=== PATIENT | female | born 1980 | race African-American/Black ===

== ENCOUNTER → 2016-03-19 | Outpatient (CLI) | payer OTHER ==
--- NOTE | 2016-03-20 07:50 | MM ---
Reason for exam: clinical finding. Baseline mammogram. History: Took hormonal contraceptives for 4 years. Indicated problem(s): lump or thickening in the left breast. Physical Findings: Nurse Summary: 1 x 1.5cm nodule in the left breast at 9 o'clock (nurse ts). MG 3D Diag Mammo W/Cad MARY Bilateral CC and MLO view(s) were taken. There are scattered fibroglandular densities. Finding: There is a 13 mm irregular mass in the upper inner quadrant, subareolar position of the left breast, 1cm from the nipple. Focal asymmetry in the left subareolar at palpable abnormality. These results were verbally communicated with the patient and result sheet given to the patient on 03/19/16. ASSESSMENT: Incomplete: need additional imaging evaluation, BI-RAD 0 RECOMMENDATION: Ultrasound of the left breast.
--- NOTE | 2016-03-20 07:52 | USB ---
Reason for exam: additional evaluation requested from abnormal screening. History: Took hormonal contraceptives for 4 years. US Breast Limited LT Left breast ultrasound demonstrates a 1.8 x 0.9 x 1.9cm irregular, solid, vascular lesion at 9 o'clock. These results were verbally communicated with the patient and result sheet given to the patient on 03/19/16. ASSESSMENT: Suspicious, BI-RAD 4 RECOMMENDATION: Surgical consultation and ultrasound core biopsy of the left breast. Called Dr. Leija with mammographic findings and has scheduled an appointment for the patient for 03/26/16 at 10:[address] Dove. Left ultrasound core biopsy scheduled for 03/21/16 at 8:00. PRELIMINARY REPORT CALLED AND FAXED TO DR. DOVE ON 03/20/16 AT 300/TP.
== END | disposition home or self-care (01) ==
LOC: RADMAMWWP 14:01
PROVIDERS: ATTEND Family Medicine
DX: R92.2 Inconclusive mammogram (principal); R92.8 Other abnormal and inconclusive findings on diagnostic imaging of breast; N63 Unspecified lump in breast
CPT/HCPCS: 77051 ×2; 76642; G0204; G0279

== ENCOUNTER → 2016-03-21 | Day surgery (SDC) | payer OTHER ==
[~2016-03-21] MED LIST: BACITRACIN OINT 1 EACH PACKET TOPICAL ONE; LIDOCAINE 1% INJ 10MG/ML (20 ML MDV) ONE; SODIUM BICARB 4% 5 ML VIAL (0.48 MEQ/ML) ONE
--- NOTE | 2016-03-21 10:06 | USB ---
EXAMINATION TYPE: US biopsy breast VAD LT, MG diagnostic mammo LT wo CAD DATE OF EXAM: 03/21/2016 8:41 AM CLINICAL HISTORY: US. TECHNIQUE: Ultrasound guided core biopsy of left breast. COMPARISON: NONE FINDINGS: The procedure of ultrasound guided core biopsy was explained to the patient. Benefits, alternatives, and risks were discussed. An informed consent was then obtained. The patient was placed in supine positioning for imaging and for the procedure. The overlying skin was prepped and draped in usual sterile fashion. Lidocaine buffered with bicarbonate was used as anesthetic into the skin and subcutaneous tissue up to area of concern in the left breast. A jose maria was made with surgical scalpel. Under ultrasound guidance, a 12-gauge vacuum assisted biopsy gun device was used to obtain 5 core samples. Following this, a biopsy clip was left in lesion. The patient tolerated the procedure well without any immediate complication. The patient was kept in the radiology department for short stay after the procedure and then discharged home in stable condition. Postprocedural mammogram demonstrated appropriate deployment of a microclip. IMPRESSION: Successful, uncomplicated ultrasound guided core biopsy of area of concern in the left breast, full pathology results to follow. Pathology Results: Benign BREAST, LEFT, CORE BIOPSY: PENDING CONSULTATION, SEE ADDENDUM/FINAL DIAGNOSIS. ADDENDUM REPORT BREAST, LEFT, CORE BIOPSY: ([id number]; A1: 03/21/16): DENSE CHRONIC INFLAMMATORY INFILTRATE WITH LOBULOCENTRIC PATTERN, FAVOR LYMPHOCYTIC MASTOPATHY. PLEASE SEE NOTE. Recommendation Follow up mammogram of the left breast in 6 months. BUBBAD
== END ==
LOC: RADUSWWP 07:57
PROVIDERS: ATTEND Surgery Plastic and Reconstructive Surgery
DX: R92.8 Other abnormal and inconclusive findings on diagnostic imaging of breast (principal); Z88.1 Allergy status to other antibiotic agents
CPT/HCPCS: 88305; 88342; 88341; 19083; G0206; A4648; J2001

== ENCOUNTER → 2016-07-25 | Outpatient (CLI) | payer OTHER | END | disposition home or self-care (01) | LOC: MMGSC 13:34 | PROVIDERS: ATTEND Obstetrics & Gynecology | DX: O20.0 Threatened abortion (principal) | CPT/HCPCS: 36415; 84702 ==

== ENCOUNTER → 2016-08-05 | Outpatient (CLI) | payer OTHER ==
[2016-08-05 18:00] LABS: Anisocytosis Slight; Basophils % (A) 0 %; CH 26.2; CHCM 31.1; Eosinophils # (A) 0.1 k/uL (0-0.7); Eosinophils % (A) 1 %; HCT 36.9 % (34.0-46.0); HDW 2.24; HGB 11.4 gm/dL (11.4-16.0); Hypochromasia Slight; Luc # (Auto) 0.21; Luc % (Auto) 2; Lymphocytes # (A) 3.6 k/uL (1.0-4.8); Lymphocytes % (A) 32 %; MCH 26.2 pg (25.0-35.0); MCHC 30.9 g/dL (31.0-37.0); MCV 84.7 fL (80.0-100.0); Mean Platelet Volume 6.3; Monocytes # (A) 0.3 k/uL (0-1.0); Monocytes % (A) 3 %; Neutrophils % (A) 62 %; RBC 4.36 m/uL (3.80-5.40); RDW 16.1 % (11.5-15.5); WBC 11.3 k/uL (3.8-10.6); WBC (Perox) 11.76
== END | disposition home or self-care (01) ==
LOC: LABPAT 17:13
PROVIDERS: ATTEND Obstetrics & Gynecology
DX: Z01.812 Encounter for preprocedural laboratory examination (principal); Z01.818 Encounter for other preprocedural examination; O03.9 Complete or unspecified spontaneous abortion without complication
CPT/HCPCS: 85025

== ENCOUNTER 2016-08-06 06:49 | Day surgery (SDC) | payer OTHER ==
[2016-08-05 11:01] VITALS: BMI 44.9
[~2016-08-06 06:49] MED LIST changes: -BACITRACIN OINT 1 EACH PACKET TOPICAL ONE; +DEXAMETHASONE SOD PHOSPHATE 10 MG/ML 1 ML VIAL IV ONE; +HYDROmorphone 1 MG/ML 1 ML SYRINGE IVP PRN; +LACTATED RINGERS 1,000 ML IV SCH; -LIDOCAINE 1% INJ 10MG/ML (20 ML MDV) ONE; +MIDAZOLAM 2 MG/2 ML VIAL IV PRN; +ONDANSETRON 4 MG/2 ML VIAL IVP ONE; +Pre Op ABX Message 1 EACH MISC MISCELLANE ONE; +SCOPOLAMINE 1.5MG/72HR PATCH TRANSDERM ONE; -SODIUM BICARB 4% 5 ML VIAL (0.48 MEQ/ML) ONE
[2016-08-06] MEDS ORDERED: MIDAZOLAM 2 MG/2 ML VIAL ONE (07:33)
[2016-08-06] MEDS ORDERED: PROPOFOL 10 MG/ML 20 ML VIAL IV ONE (07:33)
[2016-08-06] MEDS ORDERED: LIDOCAINE 1% INJ 10MG/ML (20 ML MDV) ONE (07:33)
[2016-08-06] MEDS ORDERED: SUCCINYLCHOLINE CHLORIDE VIAL 200 MG/10 ML VIAL IV ONE (07:33)
[2016-08-06] MEDS ORDERED: fentaNYL (PF) 50 MCG/ML 2 ML AMP ONE (07:33)
--- NOTE | 2016-08-06 07:58 | P.OP ---
Date of Procedure: 08/06/16 Preoperative Diagnosis: Missed AB, advanced maternal age, maternal obesity Postoperative Diagnosis: Same Procedure(s) Performed: Suction dilatation and curettage of the uterine cavity Implants: Surgeon: Alyssia De La Cruz Bag Loader #1: Stated None Estimated Blood Loss (ml): 100 IV fluids (ml): 200 Urine output (ml): 50 Pathology: other (Uterine contents) Condition: stable Disposition: PACU Indications for Procedure: Operative Findings: Description of Procedure: Patient is brought to the operative suite where general anesthetic is administered. She's placed in the dorsal lithotomy position. The appropriate timeout is performed to assure proper patient and procedural identification. Blood type is Rh+. The cervix, vagina, perineum are all prepped and draped in the usual sterile fashion. Examination under anesthesia reveals an 8 week size anteverted uterus, negative adnexa bilaterally. Bladder is drained for 50 mL of clear yellow urine. Weighted speculum was placed into the vagina. Anterior lip of the cervix is grasped with a double-tooth tenaculum. Cervix is already spontaneously dilated , uterine sound is 9 cm in the anteverted position. Cervix is then gently and systematically dilated with Hanks dilators with very little resistance. An 8 curved curet is used and under appropriate suction pressures the uterus is thoroughly curettaged for a moderate amount of tissue. A medium sharp curette is then used to assure that the cavity is completely evacuated and the "cry of the uterus" is appreciated gently. The suction curette was once again placed and no additional tissue is noted. All instrumentation is removed. All counts are correct. Patient is brought back to the recovery room in very good condition with stable vital signs including a blood pressure 189/90, pulse 95, 95% O2 saturation. Patient is given Toradol prior to leaving the operative suite. She'll follow-up with me in the office in 2 weeks.
[2016-08-06 08:11] VITALS: TEMP 97
[2016-08-06 10:06] VITALS: BP 138/81; PULSE 71; RESP 16
== END 2016-08-06 10:31 | disposition home or self-care (01) ==
LOC: OR 06:49
PROVIDERS: ATTEND Obstetrics & Gynecology
DX: O02.1 Missed abortion (principal); O02.0 Blighted ovum and nonhydatidiform mole; N85.4 Malposition of uterus; E66.9 Obesity, unspecified; Z68.42 Body mass index [BMI] 45.0-49.9, adult; Z67.40 Type O blood, Rh positive; Z88.1 Allergy status to other antibiotic agents; Z88.2 Allergy status to sulfonamides; F17.290 Nicotine dependence, other tobacco product, uncomplicated
CPT/HCPCS: 59820; 88182; 86900; 86901; 88305; 86850; J2250; J0330; J1100; J2405; J2001; J3010; J2704